=== PATIENT | male | born 1975 | race Caucasian/White ===

== ENCOUNTER 2016-07-31 00:08 | Emergency (ER) | payer BC ==
[~2016-07-31] VITALS: Ht 180.3 cm; Wt 145.1 kg
--- NOTE | ~2016-07-31 | EKG ---
[place], [place] ELECTROCARDIOGRAM REPORT NAME: AYLIN CARRANZA UNIT #: [id number] ROOM: DOCTOR: JANNA ROGERS MD BIRTHDATE: [birth year] DOS: 07/31/2016 TIME: 0038 hours. Normal sinus rhythm at 74 beats per minute. Mild left axis deviation. Consider an old inferior wall myocardial infarction. An abnormal ECG. No previous testing is available for comparison. JANNA ROGERS MD CM:EKGRPT:ELECTROCARDIOGRAM REPORT [id number] JANNA ROGERS MD
[~2016-07-31 00:08] MED LIST: AMLODIPINE BESYL5 MG PO; ATIVAN1 MG PO; BENADRYL ALLERG25 M5 PO; COMBIVENT1 ARO IH; DAYPRO600 M1 PO; DICLOFENAC POT.50 MG PO; FLEXERIL10 MG PO; HYDROCODONE BIT1 T11 PO; LISINOPRIL5 MG PO; METFORMIN500 MG PO; MOTRIN800 MG PO; NORFLEX100 MG PO; PAXIL10 MG PO; PERCOCET 325 MG1 TA2 PO; PREDNISONE20 M1 PO; ULTRAM50 MG PO
[2016-07-31 00:45] LABS: BASO # 0.1 10*3/uL (0.0-0.1); BASO % 0.8 % (0.0-1.0); EOS # 0.3 10*3/uL (0.0-0.4); EOS % 3.6 % (1.0-4.0); HEMATOCRIT 41.2 % (42.0-52.0); HEMOGLOBIN 14.6 g/dl (14.0-18.0); LYMPH # 2.6 10*3/uL (1.3-4.4); LYMPH % 29.4 % (27.0-41.0); MEAN CELL VOLUME 83.7 fl (80.0-94.0); MEAN CORPUSCULAR HGB 29.7 pg (27.0-31.0); MEAN CORPUSCULAR HGB CONC 35.4 g/dl (33.0-37.0); MEAN PLATELET VOLUME 9.4 fl (9.6-12.3); MONO # 0.9 10*3/uL (0.1-1.0); MONO % 10.5 % (3.0-9.0); NEUT % 55.6 % (47.0-73.0); PLATELET COUNT AUTOMATED 231 10*3/uL (130-400); RED BLOOD COUNT 4.92 10*6/uL (4.50-5.90); RED CELL DISTRI WIDTH 12.8 % (0-14.5); WHITE BLOOD COUNT 8.9 10*3/uL (4.8-10.8)
[2016-07-31 00:54] LABS: ABG CO2 CONTENT 24.6 mmol/L (23-27); ABG HCO3 23.8 mmol/l (22-26); ARTERIAL BLOOD GAS PH 7.568 (7.35-7.45)
[2016-07-31 00:57] LABS: BUN 16 mg/dl (7-24); CARBON DIOXIDE 28 mmol/L (21-32); CHLORIDE 99 mmol/L (98-107); EST GLOM FILT AFRICAN AMERICAN > 60 ml/min; GLUCOSE 137 mg/dL (65-99); POTASSIUM 3.9 mmol/L (3.5-5.1); SODIUM 138 mmol/L (136-145)
[2016-07-31] MEDS ORDERED: ATIVAN1 MG PO (02:18)
== END 2016-07-31 02:25 | disposition home or self-care (01) ==
LOC: ED 00:08
PROVIDERS: Emergency Medicine Emergency Medical Services
DX: F41.9 Anxiety disorder, unspecified (principal); F45.8 Other somatoform disorders; Z88.1 Allergy status to other antibiotic agents; Z88.8 Allergy status to other drugs, medicaments and biological substances

== ENCOUNTER 2017-01-15 17:55 | Emergency (ER) | payer BC ==
[~2017-01-15] VITALS: Ht 180.3 cm; Wt 145.1 kg
[2017-01-15 18:38] LABS: BASO # 0.1 10*3/uL (0.0-0.1); BASO % 0.9 % (0.0-1.0); EOS # 0.2 10*3/uL (0.0-0.4); EOS % 2.7 % (1.0-4.0); HEMATOCRIT 41.5 % (42.0-52.0); HEMOGLOBIN 14.6 g/dl (14.0-18.0); LYMPH # 1.7 10*3/uL (1.3-4.4); LYMPH % 21.8 % (27.0-41.0); MEAN CELL VOLUME 83.2 fl (80.0-94.0); MEAN CORPUSCULAR HGB 29.3 pg (27.0-31.0); MEAN CORPUSCULAR HGB CONC 35.2 g/dl (33.0-37.0); MEAN PLATELET VOLUME 9.3 fl (9.6-12.3); MONO # 0.8 10*3/uL (0.1-1.0); NEUT % 64.1 % (47.0-73.0); PLATELET COUNT AUTOMATED 251 10*3/uL (130-400); RED BLOOD COUNT 4.99 10*6/uL (4.50-5.90); RED CELL DISTRI WIDTH 12.8 % (0-14.5); WHITE BLOOD COUNT 7.8 10*3/uL (4.8-10.8)
[2017-01-15 18:55] LABS: BUN 13 mg/dl (7-24); CARBON DIOXIDE 27 mmol/L (21-32); CHLORIDE 102 mmol/L (98-107); EST GLOM FILT AFRICAN AMERICAN > 60 ml/min; GLUCOSE 168 mg/dL (65-99); MAGNESIUM 1.8 mg/dL (1.5-2.1); POTASSIUM 3.9 mmol/L (3.5-5.1); SODIUM 141 mmol/L (136-145)
[2017-01-15 19:04] LABS: TROPONIN I < 0.015 ng/ml (<0.045)
[2017-01-15] MEDS ORDERED: ATIVAN1 MG PO (22:06)
== END 2017-01-15 22:26 | disposition home or self-care (01) ==
LOC: ED 17:55
PROVIDERS: Emergency Medicine
DX: F41.9 Anxiety disorder, unspecified (principal); E86.0 Dehydration; Z88.1 Allergy status to other antibiotic agents; Z88.8 Allergy status to other drugs, medicaments and biological substances; Z79.899 Other long term (current) drug therapy

== ENCOUNTER 2017-07-24 03:48 | Emergency (ER) | payer BC ==
[~2017-07-24] VITALS: Wt 142.9 kg
[2017-07-24] MEDS ORDERED: TESSALON PERLE100 MG PO (04:01)
[2017-07-24] MEDS ORDERED: CHLORASEPTIC M1 EACH MM (04:01)
== END 2017-07-24 04:55 | disposition home or self-care (01) ==
LOC: ED 03:48
DX: J06.9 Acute upper respiratory infection, unspecified (principal); Z79.899 Other long term (current) drug therapy; Z88.1 Allergy status to other antibiotic agents; Z88.8 Allergy status to other drugs, medicaments and biological substances

== ENCOUNTER 2018-03-28 07:16 | Emergency (ER) | payer BC ==
[~2018-03-28] VITALS: Ht 180.3 cm; Wt 140.6 kg
[~2018-03-28 07:16] MED LIST changes: +CHLORASEPTIC M1 EACH MM; +TESSALON PERLE100 MG PO
[2018-03-28] MEDS ORDERED: METOPROLOL SUCC50 M1 PO (08:10)
== END 2018-03-28 08:45 | disposition home or self-care (01) ==
LOC: ED 07:16
DX: T78.3XXA Angioneurotic edema, initial encounter (principal); H93.12 Tinnitus, left ear; Z88.1 Allergy status to other antibiotic agents; Z88.8 Allergy status to other drugs, medicaments and biological substances; Z79.84 Long term (current) use of oral hypoglycemic drugs; Z79.899 Other long term (current) drug therapy

== ENCOUNTER → 2020-08-11 | Outpatient (CLI) | payer BC ==
[~2020-08-11] MED LIST changes: +CEPHALEXIN500 M1 PO; +METOPROLOL SUCC50 M1 PO; +SEPTDS PO
== END | disposition home or self-care (01) ==
LOC: COVID19 14:51
PROVIDERS: ATTEND Family Medicine
DX: Z20.822 Contact with and (suspected) exposure to COVID-19 (principal)

== ENCOUNTER 2020-10-01 16:15 | Emergency (ER) | payer BC ==
[~2020-10-01] VITALS: Wt 136.1 kg
[~2020-10-01 16:15] MED LIST changes: -CEPHALEXIN500 M1 PO; -SEPTDS PO
[2020-10-01] MEDS ORDERED: SEPTDS PO (17:02)
[2020-10-01] MEDS ORDERED: CEPHALEXIN500 M1 PO (17:02)
== END 2020-10-01 17:25 | disposition home or self-care (01) ==
LOC: ED 16:15
DX: L02.415 Cutaneous abscess of right lower limb (principal); L02.416 Cutaneous abscess of left lower limb; I10 Essential (primary) hypertension; E78.5 Hyperlipidemia, unspecified; E11.9 Type 2 diabetes mellitus without complications; F41.9 Anxiety disorder, unspecified; K21.9 Gastro-esophageal reflux disease without esophagitis; Z88.1 Allergy status to other antibiotic agents; Z88.8 Allergy status to other drugs, medicaments and biological substances; Z79.899 Other long term (current) drug therapy

== ENCOUNTER 2020-12-15 15:17 | Emergency (ER) | payer BC ==
[~2020-12-15] VITALS: Ht 180.3 cm; Wt 136.1 kg
[~2020-12-15 15:17] MED LIST changes: +CEPHALEXIN500 M1 PO; +SEPTDS PO
[2020-12-15 17:33] LABS: BILIRUBIN Negative (Negative); BLOOD 1+ (Negative); CLARITY Clear (Clear); COLOR Yellow (Yellow); GLUCOSE 2+ (Negative); KETONE Negative (Negative); LEUKO ESTERASE Negative (Negative); NITRITE Negative (Negative); PH 5.5 (4.5-8.0)
[2020-12-15 17:50] LABS: BACTERIA TRACE; HYALINE CAST 0-2
[2020-12-15 19:09] LABS: BASO # 0.1 10*3/uL (0.0-0.1); BASO % 0.6 % (0.0-1.0); EOS # 0.2 10*3/uL (0.0-0.4); EOS % 2.4 % (1.0-4.0); HEMATOCRIT 41.7 % (42.0-52.0); LYMPH % 11.4 % (27.0-41.0); MEAN CELL VOLUME 83.4 fl (80.0-94.0); MEAN CORPUSCULAR HGB 28.2 pg (27.0-31.0); MEAN CORPUSCULAR HGB CONC 33.8 g/dl (33.0-37.0); MEAN PLATELET VOLUME 9.4 fl (9.6-12.3); MONO # 1.4 10*3/uL (0.1-1.0); MONO % 15.8 % (3.0-9.0); NEUT # 6.1 10*3/uL (2.3-7.9); NEUT % 69.6 % (47.0-73.0); PLATELET COUNT AUTOMATED 273 10*3/uL (130-400); RED CELL DISTRI WIDTH 12.3 % (0-14.5); WHITE BLOOD COUNT 8.8 10*3/uL (4.8-10.8)
[2020-12-15 19:26] LABS: ALBUMIN 3.5 gm/dl (3.1-4.5); CREATININE 1.59 mg/dL (0.70-1.30); POTASSIUM 3.3 mmol/L (3.5-5.1); TOTAL PROTEIN 8.1 gm/dL (6.4-8.2)
[2020-12-15] MEDS ORDERED: ZOFRAN4 MG PO ×2 (21:30)
== END 2020-12-15 21:48 | disposition home or self-care (01) ==
LOC: ED 15:17
PROVIDERS: Emergency Medicine; Physician Assistant
DX: K52.9 Noninfective gastroenteritis and colitis, unspecified (principal); Z79.899 Other long term (current) drug therapy; Z79.84 Long term (current) use of oral hypoglycemic drugs

== ENCOUNTER 2020-12-21 03:30 | Inpatient (IN) | payer BC ==
[2020-12-21] VITALS (9 sets, daily range): BP systolic 105–128; BP diastolic 66–81
[~2020-12-21] VITALS: Ht 180.3 cm; Wt 136.2 kg
[~2020-12-21 03:30] MED LIST changes: +ZOFRAN4 MG PO
[2020-12-21 03:59] LABS: BASO # 0.1 10*3/uL (0.0-0.1); BASO % 0.6 % (0.0-1.0); EOS # 0.2 10*3/uL (0.0-0.4); EOS % 1.7 % (1.0-4.0); HEMATOCRIT 37.2 % (42.0-52.0); LYMPH # 0.9 10*3/uL (1.3-4.4); LYMPH % 8.2 % (27.0-41.0); MEAN CELL VOLUME 81.8 fl (80.0-94.0); MEAN CORPUSCULAR HGB 28.6 pg (27.0-31.0); MEAN CORPUSCULAR HGB CONC 34.9 g/dl (33.0-37.0); MONO # 1.3 10*3/uL (0.1-1.0); MONO % 12.1 % (3.0-9.0); NEUT # 8.1 10*3/uL (2.3-7.9); NEUT % 76.9 % (47.0-73.0); PLATELET COUNT AUTOMATED 362 10*3/uL (130-400); RED BLOOD COUNT 4.55 10*6/uL (4.50-5.90); WHITE BLOOD COUNT 10.5 10*3/uL (4.8-10.8)
[2020-12-21 04:14] LABS: CREATININE 2.57 mg/dL (0.70-1.30); POTASSIUM 3.4 mmol/L (3.5-5.1); TOTAL PROTEIN 7.7 gm/dL (6.4-8.2)
[2020-12-21] MEDS ORDERED: GLUCOPHAGE XR750 MG PO (05:37)
[2020-12-21] MEDS ORDERED: ATENOLOL25 MG PO (05:38)
[2020-12-21] MEDS ORDERED: AMLODIPINE BESY10 MG PO (05:39)
[2020-12-21] MEDS ORDERED: PAXIL30 M2 PO (05:39)
[2020-12-21] MEDS ORDERED: ATORVASTATIN CA10 M1 PO (05:40)
[2020-12-21] MEDS ORDERED: RYBELSUS3 MG PO (09:18)
[2020-12-21 11:58] LABS: BILIRUBIN Negative (Negative); BLOOD Negative (Negative); CLARITY Clear (Clear); COLOR Yellow (Yellow); GLUCOSE Trace (Negative); KETONE Negative (Negative); LEUKO ESTERASE Negative (Negative); NITRITE Negative (Negative); PH 5.5 (4.5-8.0); SPECIFIC GRAVITY <= 1.005 (1.001-1.030); UROBILINOGEN 0.2 E.U./dl (0.0-1.0)
[2020-12-21 12:06] LABS: URINE CREATININE RANDOM 39.8 mg/dL
[2020-12-21 12:08] LABS: BACTERIA 2+
[2020-12-22] VITALS: BP 126/82
[2020-12-22 06:04] LABS: BASO # 0.1 10*3/uL (0.0-0.1); BASO % 0.6 % (0.0-1.0); EOS # 0.2 10*3/uL (0.0-0.4); EOS % 1.9 % (1.0-4.0); HEMATOCRIT 38.4 % (42.0-52.0); LYMPH # 1.3 10*3/uL (1.3-4.4); LYMPH % 12.7 % (27.0-41.0); MEAN CELL VOLUME 84.4 fl (80.0-94.0); MEAN CORPUSCULAR HGB 28.4 pg (27.0-31.0); MEAN CORPUSCULAR HGB CONC 33.6 g/dl (33.0-37.0); MONO # 1.2 10*3/uL (0.1-1.0); MONO % 12.5 % (3.0-9.0); NEUT # 7.1 10*3/uL (2.3-7.9); NEUT % 71.9 % (47.0-73.0); PLATELET COUNT AUTOMATED 360 10*3/uL (130-400); RED BLOOD COUNT 4.55 10*6/uL (4.50-5.90); RED CELL DISTRI WIDTH 12.2 % (0-14.5); WHITE BLOOD COUNT 9.8 10*3/uL (4.8-10.8)
[2020-12-22 06:25] LABS: CREATININE 2.48 mg/dL (0.70-1.30)
[2020-12-22 06:33] LABS: FREE T4 1.25 ng/dl (0.76-1.46); THYROID STIM HORMONE (HS) 0.673 uIU/ml (0.358-4.75)
[2020-12-22 08:44] VITALS: BP 124/77
[2020-12-22 12:40] VITALS: BP 123/72
[2020-12-22 16:00] VITALS: BP 143/88
[2020-12-22 20:00] VITALS: BP 133/84
[2020-12-23] VITALS: BP 129/76
[2020-12-23 06:28] LABS: ALBUMIN 2.7 gm/dl (3.1-4.5); CREATININE 2.69 mg/dL (0.70-1.30); POTASSIUM 3.7 mmol/L (3.5-5.1)
[2020-12-23 08:00] VITALS: BP 132/68
[2020-12-23 12:00] VITALS: BP 129/85
[2020-12-23 16:08] VITALS: BP 121/76
[2020-12-23 20:00] VITALS: BP 125/78
[2020-12-23 23:55] VITALS: BP 125/76
[2020-12-24 06:09] LABS: BASO # 0.1 10*3/uL (0.0-0.1); BASO % 0.5 % (0.0-1.0); EOS # 0.2 10*3/uL (0.0-0.4); EOS % 2.1 % (1.0-4.0); LYMPH # 1.2 10*3/uL (1.3-4.4); LYMPH % 10.4 % (27.0-41.0); MEAN CELL VOLUME 84.6 fl (80.0-94.0); MEAN CORPUSCULAR HGB 28.7 pg (27.0-31.0); MEAN CORPUSCULAR HGB CONC 33.9 g/dl (33.0-37.0); MEAN PLATELET VOLUME 8.9 fl (9.6-12.3); MONO # 1.3 10*3/uL (0.1-1.0); MONO % 11.8 % (3.0-9.0); NEUT # 8.2 10*3/uL (2.3-7.9); NEUT % 74.6 % (47.0-73.0); PLATELET COUNT AUTOMATED 401 10*3/uL (130-400); RED BLOOD COUNT 4.49 10*6/uL (4.50-5.90); RED CELL DISTRI WIDTH 12.2 % (0-14.5)
[2020-12-24 06:19] LABS: CREATININE 2.87 mg/dL (0.70-1.30); POTASSIUM 3.9 mmol/L (3.5-5.1); TOTAL PROTEIN 7.3 gm/dL (6.4-8.2)
[2020-12-24 08:00] VITALS: BP 112/80
[2020-12-24 12:00] VITALS: BP 133/79
== END 2020-12-24 14:59 | disposition home or self-care (01) | DRG 391 ==
LOC: ED 03:30 → EDHOLD 04:49 → 4E 04:49
PROVIDERS: Family Medicine; Internal Medicine; Registered Nurse; ADMIT Family Medicine; ATTEND Family Medicine
DX: A08.4 Viral intestinal infection, unspecified (principal); N17.0 Acute kidney failure with tubular necrosis; E87.1 Hypo-osmolality and hyponatremia; E44.0 Moderate protein-calorie malnutrition; Z68.41 Body mass index [BMI] 40.0-44.9, adult; E66.01 Morbid (severe) obesity due to excess calories; Z20.822 Contact with and (suspected) exposure to COVID-19; I12.9 Hypertensive chronic kidney disease with stage 1 through stage 4 chronic kidney disease, or unspecified chronic kidney disease; N18.9 Chronic kidney disease, unspecified; E87.6 Hypokalemia; D64.9 Anemia, unspecified; F41.1 Generalized anxiety disorder; E11.65 Type 2 diabetes mellitus with hyperglycemia; F41.9 Anxiety disorder, unspecified; F17.220 Nicotine dependence, chewing tobacco, uncomplicated; E86.0 Dehydration; Z82.49 Family history of ischemic heart disease and other diseases of the circulatory system; Z88.1 Allergy status to other antibiotic agents; Z88.8 Allergy status to other drugs, medicaments and biological substances; Z79.899 Other long term (current) drug therapy; Z79.84 Long term (current) use of oral hypoglycemic drugs

== ENCOUNTER → 2020-12-27 | Outpatient (CLI) | payer BC ==
[~2020-12-27] MED LIST changes: +AMLODIPINE BESY10 MG PO; +ATENOLOL25 MG PO; +ATORVASTATIN CA10 M1 PO; +GLUCOPHAGE XR750 MG PO; +PAXIL30 M2 PO; +RYBELSUS3 MG PO
[2020-12-27 14:30] LABS: ALBUMIN 3.3 gm/dl (3.1-4.5); CREATININE 3.23 mg/dL (0.70-1.30); POTASSIUM 4.1 mmol/L (3.5-5.1)
== END | disposition home or self-care (01) ==
LOC: LAB 13:50
PROVIDERS: ATTEND Internal Medicine
DX: N17.0 Acute kidney failure with tubular necrosis (principal)

== ENCOUNTER → 2021-08-29 | Outpatient (CLI) | payer BC | END | disposition home or self-care (01) | LOC: COVID19 16:29 | PROVIDERS: ATTEND Internal Medicine | DX: Z20.822 Contact with and (suspected) exposure to COVID-19 (principal) ==